=== PATIENT | female | born 1995 | race Caucasian/White ===

== ENCOUNTER 2016-07-31 03:55 | Emergency (ER) | payer OTHER ==
[2016-07-31 04:01] VITALS: RESP 16
[2016-07-31] MEDS ORDERED: ONDANSETRON 4 MG/2 ML VIAL ONE (04:11)
[2016-07-31] MEDS ORDERED: NS 1,000 ML IV ONE (04:26)
[2016-07-31] MEDS ORDERED: ONDANSETRON 4 MG/2 ML VIAL IVP ONE (04:26)
--- NOTE | 2016-07-31 04:28 | EDPHY ---
H & P Stated Complaint: N/V dehydration Time Seen by Provider: 07/31/16 04:13 HPI/ROS: Chief Complaint: Nausea vomiting and diarrhea HPI: 21-year-old woman started having nausea vomiting and diarrhea about 9 o' clock yesterday evening. She has not been able to keep anything down. No blood , melena or hematochezia. No abdominal pain. No cramping. No fevers or chills. Did eat dinner at [employer] at about 5 o'clock. Did not with anybody else. Not been any other patients in the ED tonight with similar symptoms. ROS: 10 point Review of Systems is negative except as noted in the HPI. PMH: Depression Medications: Zoloft Allergies: No known drug allergies Social History: No smoking, occasional alcohol, occasional marijuana Family History: non-contributory Physical Exam: Gen: Awake, Alert, No Distress HEENT: Nose: no rhinorrhea Eyes: PERRLA, EOMI Mouth: Moist mucosa Neck: Supple, no JVD Chest: nontender, lungs clear to auscultation Heart: S1, S2 normal, no murmur Abd: Soft, very mild right mid abdomen tenderness, no adnexal tenderness, no guarding Back: no CVA tenderness, no midline tenderness Ext: no edema, non-tender Skin: no rash Neuro: CN II-XII intact, Sensation grossly intact, Strength 5/5 in bilateral upper and lower extremities - Personal History LMP (Females 10-55): 1-7 Days Ago Tetanus Vaccine Date: does not vaccinate - Medical/Surgical History Hx Asthma: Yes Hx Chronic Respiratory Disease: No Hx Diabetes: No Hx Cardiac Disease: No Hx Renal Disease: No Hx Cirrhosis: No Hx Alcoholism: No Hx HIV/AIDS: No Hx Splenectomy or Spleen Trauma: No Other PMH: Exercise induced asthma, panic attacks, depression. [place] teeth extraction age 14. Fx. arm age 2 - Social History Smoking Status: Never smoked Constitutional: Initial Vital Signs Temperature (C) 37 C 07/31/16 03:59 Heart Rate 101 H 07/31/16 03:59 Respiratory Rate 16 07/31/16 03:59 Blood Pressure 127/78 H 07/31/16 03:59 O2 Sat (%) 96 07/31/16 03:59 O2 Delivery Mode Room Air Allergies/Adverse Reactions: sesame seed Allergy (Verified 07/31/16 03:58) Home Medications: Medication Instructions Recorded Sertraline HCl [Zoloft 50mg (*)] 100 mg PO HS #0 tab 02/17/16 Medical Decision Making ED Course/Re-evaluation: Patient is improved. Repeat examination shows a soft nontender abdomen. No more nausea. Electrolytes are normal, has leukocytosis but this is consistent with gastroenteritis. Will p.o. challenge. - Data Points Laboratory Results: Laboratory Results 07/31/16 04:25 07/31/16 04:25 07/31/16 07/31/16 07/31/16 04:25 04:25 04:25 WBC 13.97 10^3/uL H 10^3/uL (3.80-9.50) RBC 5.13 10^6/uL 10^6/uL (4.18-5.33) Hgb 16.5 g/dL H g/dL (12.6-16.3) Hct 47.7 % H % (38.0-47.0) MCV 93.0 fL fL (81.5-99.8) MCH 32.2 pg pg (27.9-34.1) MCHC 34.6 g/dL g/dL (32.4-36.7) RDW 12.7 % % (11.5-15.2) Plt Count 286 10^3/uL 10^3/uL (150-400) MPV 9.3 fL fL (8.7-11.7) Neut % (Auto) 93.6 % H % (39.3-74.2) Lymph % (Auto) 1.9 % L % (15.0-45.0) Phelps % (Auto) 3.5 % L % (4.5-13.0) Eos % (Auto) 0.4 % L % (0.6-7.6) Baso % (Auto) 0.2 % L % (0.3-1.7) Nucleat RBC Rel Count 0.0 % % (0.0-0.2) Absolute Neuts (auto) 13.07 10^3/uL H 10^3/uL (1.70-6.50) Absolute Lymphs (auto) 0.27 10^3/uL L 10^3/uL (1.00-3.00) Absolute Monos (auto) 0.49 10^3/uL 10^3/uL (0.30-0.80) Absolute Eos (auto) 0.05 10^3/uL 10^3/uL (0.03-0.40) Absolute Basos (auto) 0.03 10^3/uL 10^3/uL (0.02-0.10) Absolute Nucleated RBC 0.00 10^3/uL 10^3/uL (0-0.01) Immature Gran % 0.4 % % (0.0-1.1) Immature Gran # 0.06 10^3/uL 10^3/uL (0.00-0.10) Sodium 141 mEq/L mEq/L (134-144) Potassium 4.8 mEq/L mEq/L (3.5-5.2) Chloride 105 mEq/L mEq/L (97-110) Carbon Dioxide 24 mEq/l mEq/l (22-31) Anion Gap 12 mEq/L mEq/L (8-16) BUN 18 mg/dL mg/dL (7-23) Creatinine 0.7 mg/dL mg/dL (0.6-1.0) Estimated GFR > 60 Glucose 130 mg/dL H mg/dL (70-100) Calcium 9.9 mg/dL mg/dL (8.5-10.4) Beta HCG, Qual NEGATIVE Medications Given: Discontinued Medications Sodium Chloride (Ns) 1,000 mls @ 0 mls/hr IV ONCE ONE PRN Reason: Wide Open Stop: 07/31/16 04:27 Last Admin: 07/31/16 04:30 Dose: 1,000 mls Ondansetron HCl (Zofran) 4 mg IVP EDNOW ONE Stop: 07/31/16 04:27 Last Admin: 07/31/16 04:30 Dose: 4 mg Departure - Departure Disposition: Home, Routine, Self-Care Clinical Impression: Acute gastroenteritis Condition: Good Instructions: Gastroenteritis (ED), Acute Nausea and Vomiting (ED) Additional Instructions: Drink plenty of fluids. He may take ondansetron as needed for nausea and vomiting. Follow up with primary care physician in 3-4 days if symptoms are not improving. Referrals: NONE *PRIMARY CARE P,. [Primary Care Provider] - As per Instructions Mackenzie Tenorio MD [Medical Doctor] - As per Instructions
[2016-07-31 04:34] LABS: % IMMATURE GRANULYOCYTES 0.4 % (0.0-1.1); ABSOLUTE IMMATURE GRANULOCYTES 0.06 10^3/uL (0.00-0.10); ADD DIFF? NO; ADD MORPH? NO; ADD SCAN? NO; ATYPICAL LYMPHOCYTE FLAG 0 (0-99); FRAGMENT RBC FLAG 0 (0-99); HEMATOCRIT 47.7 % (38.0-47.0); HEMOGLOBIN 16.5 g/dL (12.6-16.3); LEFT SHIFT FLG 20 (0-99); LIPEMIA HEMOLYSIS FLAG 90 (0-99); MEAN CELL HEMOGLOBIN 32.2 pg (27.9-34.1); MEAN CELL HEMOGLOBIN CONCENTR. 34.6 g/dL (32.4-36.7); MEAN PLATELET VOLUME 9.3 fL (8.7-11.7); PLATELET CLUMPS FLAG 0 (0-99); PLATELET COUNT 286 10^3/uL (150-400); RED BLOOD CELL COUNT 5.13 10^6/uL (4.18-5.33); RED CELL DISTRIBUTION WIDTH 12.7 % (11.5-15.2)
[2016-07-31 04:53] LABS: ANION GAP 12 mEq/L (8-16); CALCIUM 9.9 mg/dL (8.5-10.4); CARBON DIOXIDE 24 mEq/l (22-31); CHLORIDE 105 mEq/L (97-110); CREATININE 0.7 mg/dL (0.6-1.0); GLOMERULAR FILTRATION RATE > 60; GLUCOSE 130 mg/dL (70-100); POTASSIUM 4.8 mEq/L (3.5-5.2); SODIUM 141 mEq/L (134-144)
[2016-07-31] MEDS ORDERED: ONDANSETRON 4MG PREPACK#2 BTL TAKEHOME ONE (05:27)
[2016-07-31 05:51] VITALS: BP 135/84; PULSE 91; TEMP 98.4; O2SAT 97
== END 2016-07-31 06:03 | disposition home or self-care (01) ==
DX: K52.9 Noninfective gastroenteritis and colitis, unspecified (principal); J45.909 Unspecified asthma, uncomplicated
CPT/HCPCS: 96374; J2405

== ENCOUNTER 2016-11-13 00:44 | Emergency (ER) | payer OTHER ==
[2016-11-13 00:50] VITALS: RESP 16
[2016-11-13] MEDS ORDERED: IBUPROFEN 600 MG TAB PO ONE ×2 (00:54→00:56)
--- NOTE | 2016-11-13 01:05 | EDPHY ---
H & P Stated Complaint: l ankle pain vs rolled ankle stepping on bottle at 1999 last night Source: Patient Exam Limitations: No limitations - Personal History LMP (Females 10-55): Unknown Current Tetanus/Diphtheria Vaccine: No Tetanus Vaccine Date: does not vaccinate - Medical/Surgical History Hx Asthma: Yes Hx Chronic Respiratory Disease: No Hx Diabetes: No Hx Cardiac Disease: No Hx Renal Disease: No Hx Cirrhosis: No Hx Alcoholism: No Hx HIV/AIDS: No Hx Splenectomy or Spleen Trauma: No Other PMH: Exercise induced asthma, panic attacks, depression. [place] teeth extraction age 14. Fx. arm age 2 - Social History Smoking Status: Never smoked HPI/ROS: 0259AM: X-rays reviewed ankle and foot. I do not appreciate acute fracture. Clinically she has ankle sprain. Will place an Aleksey wrap, ice, elevation and crutches. Follow up Orthopedics. Return emergency room if there is any worsening symptoms questions or concerns. Walking boot. (Narciso Mtz) CHIEF COMPLAINT: Left ankle pain HISTORY OF PRESENT ILLNESS: Patient complains of left ankle pain. She slipped on a bottle 5 hours ago. She complains of pain in the left ankle in the dorsum of the left foot. It is mild to moderate. Worse with weight-bearing and ambulation. Too much pain for her to walk on. Radiates into the foot. Does not have any pain in her left heel, qu[place]edo or proximal fibula. No pain in the knee or hip. She did not strike her head or conscious. She has no back, abdominal or chest pain. No other associated complaints or modifying factors. PRIOR ORTHO INJURIES: Patellar dislocations ESTABLISHED ORTHOPEDIST: None REVIEW OF SYSTEMS: Ten systems reviewed and are negative unless otherwise noted in the HPI EXAMINATION General Appearance: Alert, no distress Cardiovascular: Pulses normal throughout. Symmetric DP and PT pulses 2+ Brisk cap refill Neurological: A&O, sensory symmetric, strength symmetric. Normal proprioception of the great toe. No foot drop strength is symmetric in both ankles Skin: Warm and dry, no rash. No laceration abrasion or contusions Extremities: Tenderness of the left midfoot and the distal ankle. There is no tenderness of the malleoli. No tenderness at the base of the 5th metatarsal. No tenderness of the calcaneus. Range of motion is intact painful nonweightbearing. There is no tenderness of the left proximal fibula. Neurovascular intact distal to the pain Psychiatric: Mood and affect normal DIFFERENTIAL DIAGNOSES: Including but not limited to foot sprain, ankle sprain, dislocation, fracture, fracture dislocation MDM: 1:05 a.m. Acute sprain of the left foot and ankle. There is pain over the midfoot more so than the ankle. No deformity. Neurovascular intact. No calcaneal tenderness. No tenderness of the proximal fibula. Suspect this is a simple sprain. X-rays are pending at this time. 1:10 a.m. At this time I have discussed the case with Dr. Mtz. He will assume care the patient. Plan for discharge home with treatment for sprain of ankle and foot. X-rays are pending and he will review these and disposition the patient. ED Precautions: Worsening pain. Erythema, edema, cyanosis, pallor, paresthesia or anesthesia. SUPERVISION: Patient was evaluated in conjunction with the supervising physician. Please see their note for details. (Yung Garcia) Constitutional: Initial Vital Signs Temperature (C) 98.4 F 11/13/16 00:45 Heart Rate 103 H 11/13/16 00:45 Respiratory Rate 16 11/13/16 00:45 Blood Pressure 151/115 H 11/13/16 00:45 O2 Sat (%) 97 11/13/16 00:45 O2 Delivery Mode Room Air Allergies/Adverse Reactions: sesame seed Allergy (Verified 11/13/16 02:39) Home Medications: Medication Instructions Recorded Sertraline HCl [Zoloft 50mg (*)] 100 mg PO HS #0 tab 02/17/16 Departure - Departure Disposition: Home, Routine, Self-Care Clinical Impression: Sprain of foot, left Qualifiers: Encounter type: initial encounter Qualified Code(s): S93.602A - Unspecified sprain of left foot, initial encounter Left ankle sprain Qualifiers: Encounter type: initial encounter Involved ligament of ankle: unspecified ligament Qualified Code(s): S93.402A - Sprain of unspecified ligament of left ankle, initial encounter Condition: Good Instructions: Ankle Sprain (ED), Foot Sprain (ED) Additional Instructions: 1. Weightbearing instructions as discussed 2. Ibuprofen 600-800 mg as needed every 8 hours 3. Follow up with Orthopedics for definitive care Referrals: NONE *PRIMARY CARE P,. [Primary Care Provider] - As per Instructions Umberto Burks MD [Medical Doctor] - As per Instructions Stand Alone Forms: Work Excuse
[2016-11-13 03:20] VITALS: BP 111/77; PULSE 74; TEMP 97.7; O2SAT 96
== END 2016-11-13 03:20 | disposition home or self-care (01) ==
DX: S93.402A Sprain of unspecified ligament of left ankle, initial encounter (principal); S93.602A Unspecified sprain of left foot, initial encounter; J45.909 Unspecified asthma, uncomplicated; W18.40XA Slipping, tripping and stumbling without falling, unspecified, initial encounter
CPT/HCPCS: L4386

== ENCOUNTER 2017-03-26 07:09 | Emergency (ER) | payer OTHER ==
[2017-03-26 07:14] VITALS: RESP 16; TEMP 97.9
--- NOTE | 2017-03-26 07:15 | EDPHY ---
H & P Stated Complaint: dehydration Time Seen by Provider: 03/26/17 07:15 HPI/ROS: CHIEF COMPLAINT: I'm dehydrated HISTORY OF PRESENT ILLNESS: The patient presents to the ED with a 1 day history of nausea and 12 episodes of vomiting. The patient denies significant abdominal pain. The patient denies any melena or hematemesis. The patient denies significant alcohol consumption. The patient denies prior surgical history. The patient reports her main symptom is a feeling of generalized weakness from dehydrated. She denies recent fever, cough or congestion. The patient denies past medical history. She takes no regular prescription medications. REVIEW OF SYSTEMS: A comprehensive 10 point review of systems is otherwise negative aside from elements mentioned in the history of present illness. Source: Patient Exam Limitations: No limitations - Personal History LMP (Females 10-55): 22-28 Days Ago Current Tetanus/Diphtheria Vaccine: No Current Tetanus Diphtheria and Acellular Pertussis (TDAP): No Tetanus Vaccine Date: does not vaccinate - Medical/Surgical History Hx Asthma: Yes Hx Chronic Respiratory Disease: No Hx Diabetes: No Hx Cardiac Disease: No Hx Renal Disease: No Hx Cirrhosis: No Hx Alcoholism: No Hx HIV/AIDS: No Hx Splenectomy or Spleen Trauma: No Other PMH: Exercise induced asthma, panic attacks, depression. [place] teeth extraction age 14. Fx. arm age 2 - Social History Smoking Status: Never smoked - Physical Exam Exam: General Appearance: Alert, no distress Eyes: Pupils equal and round no pallor or injection ENT, Mouth: Mucous membranes moist Respiratory: There are no retractions, lungs are clear to auscultation Cardiovascular: Regular rate and rhythm Gastrointestinal: Abdomen is soft and nontender, no masses, bowel sounds normal Neurological: 5/5 strength all 4 extremities Skin: Warm and dry, no rashes Musculoskeletal: Neck is supple nontender Extremities: symmetrical, full range of motion Constitutional: Initial Vital Signs Temperature (C) 36.6 C 03/26/17 07:12 Heart Rate 87 03/26/17 07:12 Respiratory Rate 16 03/26/17 07:12 Blood Pressure 128/70 H 03/26/17 07:12 O2 Sat (%) 92 03/26/17 07:12 O2 Delivery Mode Room Air Allergies/Adverse Reactions: sesame seed Allergy (Verified 03/26/17 07:12) Home Medications: Medication Instructions Recorded Bcp 03/26/17 Medical Decision Making ED Course/Re-evaluation: The patient presents to the ED with nausea and vomiting. Her initial abdominal examination demonstrates no focal tenderness. The patient had an IV established. She received 1 L of normal saline. The patient received 4 mg of Zofran. The patient's laboratory studies do demonstrate evidence of a mild acidosis from vomiting and volume depletion. The patient was re-evaluated at 8:40 a.m. and is currently feeling better. She would like to be discharged home. She will be provided a prescription for Zofran. She is discharged home with customary aftercare instructions and return precautions. Differential Diagnosis: Differential diagnosis considered includes dehydration, metabolic abnormality, , gastroenteritis - Data Points Laboratory Results: Laboratory Results 03/26/17 08:00 03/26/17 03/26/17 08:00 08:00 Sodium 145 mEq/L H mEq/L (134-144) Potassium 4.2 mEq/L mEq/L (3.5-5.2) Chloride 113 mEq/L H mEq/L (97-110) Carbon Dioxide 17 mEq/l L mEq/l (22-31) Anion Gap 15 mEq/L mEq/L (8-16) BUN 8 mg/dL mg/dL (7-23) Creatinine 0.6 mg/dL mg/dL (0.6-1.0) Estimated GFR > 60 Glucose 92 mg/dL mg/dL (70-100) Calcium 9.2 mg/dL mg/dL (8.5-10.4) Beta HCG, Qual NEGATIVE Medications Given: Discontinued Medications Sodium Chloride (Ns) 1,000 mls @ 0 mls/hr IV EDNOW ONE; Wide Open PRN Reason: Protocol Stop: 03/26/17 07:38 Last Admin: 03/26/17 07:49 Dose: 1,000 mls Ondansetron HCl (Zofran) 4 mg IVP EDNOW ONE Stop: 03/26/17 07:38 Last Admin: 03/26/17 07:50 Dose: 4 mg Departure - Departure Disposition: Home, Routine, Self-Care Clinical Impression: Dehydration, Vomiting Condition: Good Instructions: Acute Nausea and Vomiting (ED) Additional Instructions: 1. Please return to the emergency department for intractable vomiting or other concerns. 2. Zofran as needed for nausea.
[2017-03-26] MEDS ORDERED: NS 1,000 ML IV ONE (07:37)
[2017-03-26] MEDS ORDERED: ONDANSETRON 4 MG/2 ML VIAL IVP ONE (07:37)
[2017-03-26 08:52] VITALS: BP 119/70; PULSE 86; O2SAT 97
== END 2017-03-26 08:58 | disposition home or self-care (01) ==
DX: E86.0 Dehydration (principal); R11.10 Vomiting, unspecified; J45.909 Unspecified asthma, uncomplicated
CPT/HCPCS: 96374; J2405

== ENCOUNTER 2018-01-17 10:25 | Emergency (ER) | payer OTHER ==
--- NOTE | 2018-01-17 10:40 | EDPHY ---
H & P Time Seen by Provider: 01/17/18 10:37 HPI/ROS: CHIEF COMPLAINT: Painful frequent urination HISTORY OF PRESENT ILLNESS: The patient is a 22-year-old female here concerned about possible UTI. She reports that yesterday evening she started with painful frequent urination and noticed that there was blood in her urine. She denies any back pain or flank pain. She has no history of kidney stones. She has had no fever. She denies . She takes no prescribed medication. She has tried no medication to alleviate her pain. ROS As detailed in HPI Smoking Status: Never smoked Physical Exam: General: Alert and oriented. Nontoxic appearing. No acute distress HEENT: Pupils PERRLA. No oral lesions. Cardiopulmonary: Regular rate and rhythm. No lower extremity edema Skin: [place] warm and dry. No lesions. Muscle skeletal: Moving all 4 extremities. Equal strength in upper extremities and lower extremities. Ambulatory. Abdomen: No abdominal tenderness. Abdomen is soft. No CVA tenderness. Constitutional: Initial Vital Signs Temperature (C) 36.5 C 01/17/18 10:28 Heart Rate 78 01/17/18 10:28 Respiratory Rate 16 01/17/18 10:28 Blood Pressure 134/69 H 01/17/18 10:28 O2 Sat (%) 97 01/17/18 10:28 O2 Delivery Mode Room Air Allergies/Adverse Reactions: No Known Allergies Allergy (Unverified 01/17/18 10:27) Home Medications: Medication Instructions Recorded Bcp 03/26/17 Cephalexin [Keflex (*)] 500 mg PO TID #21 cap 01/17/18 Medical Decision Making ED Course/Re-evaluation: [age] old patient here with painful frequent urination with hematuria. Urinalysis is not conclusive so was sent for urine culture. She was started on Macrobid for probable UTI. Differential diagnosis includes Pyelonephritis, ureteral stone, , ectopic , vaginitis - Data Points Laboratory Results: 01/17/18 01/17/18 11:35 10:32 Urine Color YELLOW REJ Urine Appearance CLEAR TNP Urine pH 8.0 H TNP (5.0-7.5) Ur Specific [place] 1.013 TNP (1.002-1.030) Urine Protein NEGATIVE TNP (NEGATIVE) Urine Ketones NEGATIVE TNP (NEGATIVE) Urine Blood 1+ H TNP (NEGATIVE) Urine Nitrate NEGATIVE TNP (NEGATIVE) Urine Bilirubin NEGATIVE TNP (NEGATIVE) Urine Urobilinogen NEGATIVE EU EU TNP (0.2-1.0) Ur Leukocyte Esterase TRACE H TNP (NEGATIVE) Urine RBC 15-25 /hpf H /hpf (0-3) Urine WBC 25-50 /hpf H /hpf (0-3) Ur Epithelial Cells TRACE /lpf /lpf (NONE-1+) Urine Mucus TRACE /lpf /lpf (NONE-1+) Urine Glucose NEGATIVE TNP (NEGATIVE) Medications Given: Discontinued Medications Cephalexin HCl (Keflex) 500 mg PO EDNOW ONE PRN Reason: Protocol Stop: 01/17/18 12:09 Last Admin: 01/17/18 12:14 Dose: 500 mg Departure - Departure Disposition: Home, Routine, Self-Care Clinical Impression: UTI (urinary tract infection) Condition: Good Instructions: Urinary Tract Infection in Women (ED) Additional Instructions: Do a fever, worsening pain, vomiting or other worrisome symptoms return to the ER. Her urine culture has been sent and will be available in the next 24-48 hours Referrals: NONE *PRIMARY CARE P,. [Primary Care Provider] - As per Instructions [facility],. [Clinic] - As per Instructions Prescriptions: Cephalexin [Keflex (*)] 500 mg PO TID #21 cap
[2018-01-17] MEDS ORDERED: CEPHALEXIN 500 MG CAP PO ONE (12:08)
[2018-01-17 12:21] VITALS: BP 123/75
== END 2018-01-17 12:21 | disposition home or self-care (01) ==
DX: N39.0 Urinary tract infection, site not specified (principal)

== ENCOUNTER 2018-02-04 14:28 | Emergency (ER) | payer OTHER ==
[2018-02-04 14:34] VITALS: BP 115/82
--- NOTE | 2018-02-04 15:07 | EDPHY ---
H & P Stated Complaint: PANIC ATTACK Time Seen by Provider: 02/04/18 14:55 HPI/ROS: CHIEF COMPLAINT: Panic attack HISTORY OF PRESENT ILLNESS: Patient is a 23-year-old female with a history of anxiety depression. She is to have frequent panic attacks would take lorazepam p.r.n.. She however has not had 1 in over year and no longer has a prescription. She states that her depression has been gradually worsening over the last couple of weeks and she was trying to make an appointment with a psychologist today but cannot get an appointment. This caused her to have a panic attack. This began around 1:00 a.m. And is now resolved. She is here asking for referral to a psychiatrist and for a prescription of p.r.n. Ativan. She denies suicidality homicidality. No recent illnesses. No recent drug or alcohol ingestion. Severity: Moderate Modifying factors: Resolved with time REVIEW OF SYSTEMS: Constitutional: denies: chills, fever, recent illness, recent injury EENTM: denies: blurred vision, double vision, nose congestion Respiratory: denies: cough, shortness of breath Cardiac: denies: chest pain, irregular heart rate, lightheadedness, palpitations Gastrointestinal/Abdominal: denies: abdominal pain, diarrhea, nausea, vomiting, blood streaked stools Genitourinary: denies: dysuria, frequency, hematuria, pain Musculoskeletal: denies: joint pain, muscle pain Skin: denies: lesions, rash, jaundice, bruising Neurological: denies: headache, numbness, paresthesia, tingling, dizziness, weakness Hematologic/Lymphatic: denies: blood clots, easy bleeding, easy bruising Immunologic/allergic: denies: HIV/AIDS, transplant 10 systems reviewed and negative except as noted EXAM: GENERAL: Well-appearing, well-nourished and in no acute distress. HEAD: Atraumatic, normocephalic. EYES: Pupils equal round and reactive to light, extraocular movements intact, sclera anicteric, conjunctiva are normal. ENT: TMs normal, nares patent, oropharynx clear without exudates. Moist mucous membranes. NECK: Normal range of motion, supple without lymphadenopathy or JVD. LUNGS: Breath sounds clear to auscultation bilaterally and equal. No wheezes rales or rhonchi. HEART: Regular rate and rhythm without murmurs, rubs or gallops. ABDOMEN: Soft, nontender, normoactive bowel sounds. No guarding, no rebound. No masses appreciated. BACK: No CVA tenderness, no spinal tenderness, step-offs or deformities EXTREMITIES: Normal range of motion, no pitting or edema. No clubbing or cyanosis. NEUROLOGICAL: Cranial nerves II through XII grossly intact. Normal speech, normal gait. 5/5 strength, normal movement in all extremities, normal sensation , normal reflexes PSYCH: Normal mood, normal affect. SKIN: Warm, dry, normal turgor, no visible rashes or lesions. Source: Patient Exam Limitations: No limitations - Personal History LMP (Females 10-55): Now Current Tetanus Diphtheria and Acellular Pertussis (TDAP): No Tetanus Vaccine Date: does not vaccinate - Medical/Surgical History Hx Asthma: No Hx Chronic Respiratory Disease: No Hx Diabetes: No Hx Cardiac Disease: No Hx Renal Disease: No Hx Cirrhosis: No Hx Alcoholism: No Hx HIV/AIDS: No Hx Splenectomy or Spleen Trauma: No Other PMH: Exercise induced asthma, panic attacks, depression - Family History Significant Family History: No pertinent family hx - Social History Smoking Status: Never smoked Alcohol Use: Sober Drug Use: None Constitutional: Initial Vital Signs Temperature (C) 36.9 C 02/04/18 14:32 Heart Rate 74 02/04/18 14:32 Respiratory Rate 26 H 02/04/18 14:32 Blood Pressure 115/82 H 02/04/18 14:32 O2 Sat (%) 99 02/04/18 14:32 O2 Delivery Mode Room Air Allergies/Adverse Reactions: No Known Allergies Allergy (Verified 02/04/18 14:31) Home Medications: Medication Instructions Recorded Bcp 03/26/17 LORazepam [Ativan (*)] 1 mg PO Q4-6PRN PRN #14 tab 02/04/18 Medical Decision Making ED Course/Re-evaluation: The patient feels better. She does not wish to have any treatment now. She is here asking for a p.r.n. Prescription of Ativan to get her through until her appointment with psychiatry next week. I will also refer her to the crisis Center if needed. We also discussed indications for returning to the ER. Differential Diagnosis: Partial list of the Differential diagnosis considered include but were not limited to; anxiety, panic attack, depression and although unlikely based on the history and physical exam, I also considered suicidality, infection, head injury, arrhythmia. I discussed these differential diagnoses and the plan with the patient as well as the usual and expected course. The patient understands that the diagnosis is provisional and that in medicine we are not always correct and that further workup is often warranted. Usual and customary warnings were given. All of the patient's questions were answered. The patient was instructed to return to the emergency department should the symptoms at all worsen or return, otherwise to followup with the physician as we discussed. Departure - Departure Disposition: Home, Routine, Self-Care Condition: Fair Referrals: NONE *PRIMARY CARE P,. [Primary Care Provider] - As per Instructions [facility],. [Clinic] - 2-3 days, call for appt. Prescriptions: LORazepam [Ativan (*)] 1 mg PO Q4-6PRN PRN #14 tab PRN Reason: Anxiety
== END 2018-02-04 15:15 | disposition home or self-care (01) ==
DX: F41.9 Anxiety disorder, unspecified (principal)